=== PATIENT | male | born 1970 | race Caucasian/White ===

== ENCOUNTER 2019-05-11 06:49 | Day surgery (SDC) | payer OTHER ==
[2019-05-10 10:38] VITALS: BMI 24.8
[2019-05-11 08:20] LABS: #Eosinphils 0.1 thou/uL (0.0-0.7); #Lymphocytes 1.2 thou/uL (1.20-3.40); #Monocytes 0.4 thou/uL (0.11-0.59); #Neutrophils 3.3 thou/uL (1.40-6.50); %Basophils 0.5 % (0.0-1.0); %Eosinophils 2.2 % (0.0-10.0); %Lymphocytes 24.3 % (21.0-51.0); %Monocytes 7.6 % (0.0-10.0); %Neutrophils 65.5 % (42.0-75.0); Hemoglobin 14.5 g/dL (14.0-18.0); Mean Corpuscular HGB CONC 34.2 g/dL (32.0-36.0); Mean Corpuscular Hemoglobin 31.1 pg (27.0-31.0); Mean Corpuscular Volume 91.1 fL (78.0-98.0); Mean Platelet Volume 7.9 fL (7.4-10.4); Platelet Count 228 thou/uL (130-400); RBC Distribution Width 11.9 % (11.5-14.5); Red Blood Cell (RBC) Count 4.65 mill/uL (4.70-6.10); White Blood Cell (WBC) Count 5.1 thou/uL (4.8-10.8)
[2019-05-11] MEDS ORDERED: Lidocaine 1% w/Epinephrine 1:100K 20 ML VIAL ONE (09:04)
[2019-05-11] MEDS ORDERED: Bupivacaine 0.25% HCL 30 ML VIAL ONE (09:04)
[2019-05-11] MEDS ORDERED: Fentanyl 100 MCG/2 ML VIAL ONE ×2 (09:06→10:48)
[2019-05-11] MEDS ORDERED: ePHEDrine/0.9% NaCl/PF SYRINGE 50 mg/10 ml ONE (13:03)
[2019-05-11] MEDS ORDERED: Glycopyrrolate 0.2 MG/ML 5 ML SYRINGE ONE (13:03)
[2019-05-11] MEDS ORDERED: Lidocaine 1% PF 5 ML VIAL ONE (13:03)
[2019-05-11] MEDS ORDERED: PROPOFOL 200 MG/20 ML VIAL ONE (13:03)
[2019-05-11] MEDS ORDERED: Dexamethasone 20 MG/5 ML VIAL ONE (13:03)
[2019-05-11] MEDS ORDERED: Ondansetron PF 4 MG/2 ML Vial ONE (13:03)
--- NOTE | 2019-05-12 12:15 | OP ---
DATE OF PROCEDURE: 05/11/2019 PREOPERATIVE DIAGNOSES: 1. Complex medial meniscus tear with frayed lateral meniscus edge, cartilage extending patellofemoral joint. No full-thickness cartilage defects. 2. Chondrocalcinosis. POSTOPERATIVE DIAGNOSES: 1. Degenerative fraying, posterior root tear, lateral meniscus. 2. Grade 2-3 changes noted to trochlea, grade 1-2 changes noted to the patellar chondral surfaces. 3. Grade 3-4 changes to medial femoral condyle. 4. No definitive meniscal tear. 5. Chondrocalcinosis throughout the joint. PROCEDURE PERFORMED: Debrided and shaving in three compartments. PATROL DEPUTY SHERIFF: None. ANESTHESIA: Isis. The patient received LMA, received 20 mL of lidocaine 1% with epinephrine preprocedure; 20 mL of Marcaine, 0.25% plain postprocedure. TOURNIQUET TIME: 17 minutes at 300 mmHg. ESTIMATED BLOOD LOSS: Less than 30 mL. ANTIBIOTICS: Ancef 2 g. COMPLICATIONS: None. HISTORY OF PRESENT ILLNESS: Mr. Maguire is a 48-year-old male, active, retired gentleman, presents experiencing pain. No acute injuries. 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. The patient has pain with running. Had MRI evidence of a meniscus tear as well as some patellofemoral changes as well as a lateral meniscus tear. I discussed with him the risks and benefits of an arthroscopic evaluation for possible medial and lateral meniscectomy, indicated procedures. I discussed risks and benefits of procedure, pain, scar, bleeding, infection, damage to vital structures, decreased range of motion and strength, need for further surgeries, failure of procedure, continued pain despite surgical intervention, loss of life or limb. The patient understood the risks and benefits of procedure and elected to proceed. DESCRIPTION OF PROCEDURE: Time-out was performed designating the patient's left lower extremity as the operative site. After time-out, the patient's left lower extremity was prepped and draped in a sterile fashion. Tourniquet was brought up and left for a total of 17 minutes. Lateral, anterolateral, and anteromedial portals were placed. We debrided the fat pad looked to the ACL and PCL were intact. There was chondrocalcinosis that was noted throughout the joint unilateral in the pouch, within portions of the meniscus. We looked at the patellofemoral joint. There were some grade 1-2 changes noted in the patella, grade 2-3 changes in the trochlear groove, looked in the mediolateral gutters, no loose bodies. We debrided down some of the free fragments of the chondrocalcinosis in the pouch. We then moved the lateral compartment. There was a frayed edge at the root insertion, which we debrided down. There was no obvious full-thickness tear, radial tear, or unstable tear. There were some grade 1 changes maybe on the tibia, but no significant changes noted in lateral femoral condyle. Looking medially, there were some grade 1 to 2 changes on the tibia, but there were largest area of grade 3-4 changes on the medial femoral condyle with chondrocalcinosis of the of the medial meniscus. I could not find an unstable portion of the medial meniscus. I probed with my remnant and could not find a tear that looked to be the source of his medial knee pain. I debrided the patellofemoral, 3-4 medial femoral condyle changes, just the flap tears that were mobile, as well as took down some of the calcinosis that I saw. I completed my procedure, removed all the joint fluid, injected the Marcaine in subcu. The patient will be weightbearing as tolerated. Outcome is guarded given the findings. Job ID: [id number] [facility]
== END 2019-05-11 13:30 | disposition home or self-care (01) ==
LOC: SDC 06:49
PROVIDERS: ATTEND Orthopaedic Surgery
PROC: 0SBD4ZZ Excision of Left Knee Joint, Percutaneous Endoscopic Approach (ICD-10-PCS; principal; 2019-05-11)
DX: M11.262 Other chondrocalcinosis, left knee (principal); Z88.5 Allergy status to narcotic agent
CPT/HCPCS: 85025; J0690; J1100; J2001; J2405; J2704; J3010; S0020